=== PATIENT | female | born 1995 | race Hispanic/Latino ===

== ENCOUNTER 2021-03-07 20:00 | Emergency (ER) | payer SELFPAY ==
[2021-03-07] MEDS ORDERED: Metoclopramide HCl 10 MG/2 ML VIAL ONE (21:51)
[2021-03-07] MEDS ORDERED: diphenhydrAMINE 50 MG/ML VIAL ONE (21:51)
[2021-03-07] MEDS ORDERED: Ketorolac Tromethamine 30 MG/ML VIAL ONE (21:51)
== END 2021-03-07 23:56 | disposition home or self-care (01) ==
LOC: ERS 20:00
DX: G43.909 Migraine, unspecified, not intractable, without status migrainosus (principal)
CPT/HCPCS: 96365; 96375; J1200; J1885; J2765

== ENCOUNTER 2021-05-24 10:28 | Emergency (ER) | payer SELFPAY ==
[2021-05-24 19:51] LABS: SARS-CoV-2 PCR by NAA Not Detected (NotDetected)
== END 2021-05-24 11:44 | disposition home or self-care (01) ==
LOC: ERS 10:28
DX: Z20.822 Contact with and (suspected) exposure to COVID-19 (principal)
CPT/HCPCS: 99283; U0003; U0005

== ENCOUNTER 2022-05-08 12:44 | Emergency (ER) | payer OTHER, SELFPAY ==
[2022-05-08] MEDS ORDERED: Ondansetron ODT 4 MG TAB ONE (13:16)
[2022-05-08] MEDS ORDERED: Acetaminophen 500 MG TAB ONE (13:16)
[2022-05-08 13:51] LABS: Bilirubin Negative (Negative); Blood, Urine Negative (Negative); Clarity Clear (Clear); Glucose, Urine (Dipstick) Normal (Negative); Ketone, Urine 150 mg/dL (Negative); Leukocyte Negative Leu/uL (Negative); Nitrite Negative (Negative); Protein, Urine (Dipstick) 10 mg/dL (Neg-Trace); Specific Gravity, Urine 1.023 (1.002-1.036); Urobilinogen Normal mg/dL (Less than 2); pH, Urine 6.5 (5.0-9.0)
[2022-05-08 15:16] LABS: SARS-CoV-2 NAA Rapid Test Not Detected (NotDetected)
== END 2022-05-08 16:17 | disposition home or self-care (01) ==
LOC: ERS 12:44
DX: O98.511 Other viral diseases complicating pregnancy, first trimester (principal); B34.9 Viral infection, unspecified; Z20.822 Contact with and (suspected) exposure to COVID-19; Z3A.12 12 weeks gestation of pregnancy
CPT/HCPCS: 81003; 99283; Q0162

== ENCOUNTER 2023-10-01 07:22 | Emergency (ER) | payer OTHER ==
[2023-10-01] MEDS ORDERED: Ibuprofen 800 MG TAB ONE (07:37)
[2023-10-01] MEDS ORDERED: predniSONE 20 MG TAB ONE (07:38)
[2023-10-01 08:26] LABS: SARS-CoV-2 NAA Rapid Test Not Detected (NotDetected)
== END 2023-10-01 09:45 | disposition home or self-care (01) ==
LOC: EDBD 07:22 → ERS 07:22
DX: J06.9 Acute upper respiratory infection, unspecified (principal); Z20.822 Contact with and (suspected) exposure to COVID-19
CPT/HCPCS: 87081; 87430; 99283; J7512

== ENCOUNTER 2023-10-19 15:36 | Emergency (ER) | payer OTHER, SELFPAY ==
[2023-10-19] MEDS ORDERED: Acetaminophen 500 MG TAB ONE (16:26)
[2023-10-19] MEDS ORDERED: Metoclopramide HCl 10 MG/2 ML VIAL ONE (16:26)
[2023-10-19 16:30] LABS: #Monocytes 0.6 thou/uL (0.11-0.59); #Neutrophils 7.6 thou/uL (1.40-6.50); %Basophils 0.2 % (0.0-1.0); %Eosinophils 0.3 % (0.0-10.0); %Lymphocytes 19.3 % (21.0-51.0); %Neutrophils 73.7 % (42.0-75.0); Hemoglobin 14.1 g/dL (12.0-16.0); Mean Corpuscular HGB CONC 32.8 g/dL (32.0-36.0); Mean Corpuscular Hemoglobin 28.4 pg (27.0-31.0); Mean Corpuscular Volume 86.5 fl (78.0-98.0); Mean Platelet Volume 9.7 fL (7.4-10.4); Platelet Count 299 10x3/uL (130-400); RBC Distribution Width 12.5 % (11.5-14.5); Red Blood Cell (RBC) Count 4.97 mill/uL (4.20-5.40); White Blood Cell (WBC) Count 10.3 10x3/uL (4.8-10.8)
[2023-10-19 16:38] LABS: BHCG - Serum Negative (NEGATIVE); Pregs Control Background? CLEAR/WHITE (CLR/WHITE); Pregs Control Bar Appear? YES (CONTROL BAR)
[2023-10-19 16:53] LABS: ALT (SGPT) 25 U/L (8-55); AST (SGOT) 18 U/L (5-34); Albumin 4.6 g/dL (3.5-5.0); Alkaline Phosphatase 83 U/L (40-110); Anion Gap 11 mmol/L (10-20); BUN (Urea Nitrogen) 12 mg/dL (7.0-18.7); Bilirubin, Total 0.6 mg/dL (0.2-1.2); Calc. Creatinine Clearance 0 mL/min (70-130); Calcium 9.5 mg/dL (7.8-10.44); Carbon Dioxide 27 mmol/L (22-29); Chloride 107 mmol/L (98-107); Estimated GFR 104; Globulin 3.3 g/dL (2.4-3.5); Glucose 98 mg/dL (70-105); Potassium 3.7 mmol/L (3.5-5.1); Protein, Total 7.9 g/dL (6.0-8.3); Sodium 141 mmol/L (136-145)
[2023-10-19] MEDS ORDERED: Magnesium 2 GM/50 ML BAG (IN WATER) ONE (17:45)
[2023-10-19] MEDS ORDERED: Dexamethasone 10 MG/ML VIAL ONE (17:45)
== END 2023-10-19 18:31 | disposition home or self-care (01) ==
LOC: ERS 15:36
DX: R51.9 Headache, unspecified (principal); G23.8 Other specified degenerative diseases of basal ganglia
CPT/HCPCS: 70450; 80053; 84703; 85025; 96365; 96367; 96375; J1100; J2765; J3475